=== PATIENT | female | born 1995 | race Caucasian/White ===

== ENCOUNTER 2024-10-14 07:17 | Emergency (ER) | payer OTHER, SELFPAY ==
[2024-10-14 07:38] VITALS: BP 112/56
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
== END 2024-10-14 08:51 | disposition home or self-care (01) ==
LOC: EMR 07:17
PROVIDERS: EMERGENCY PHYSICIAN Emergency Medicine; FAMILY PHYSICIAN Family Medicine
DX: S82.831A Other fracture of upper and lower end of right fibula, initial encounter for closed fracture (principal); V89.2XXA Person injured in unspecified motor-vehicle accident, traffic, initial encounter; F17.200 Nicotine dependence, unspecified, uncomplicated
CPT/HCPCS: 99283; 29515; 73610